=== PATIENT | male | born 1995 | race Caucasian/White ===

== ENCOUNTER → 2017-01-22 | Outpatient (REF) | payer BC ==
[2017-01-23 11:31] LABS: MEAN CORPUSCULAR HEMOGLOBIN 31.4 pg (27.0-33.0); MEAN CORPUSCULAR VOLUME 89.7 fl (80.0-96.0); RED CELL DISTRIBUTION WIDTH 12.3 % (11.5-14.5); WHITE BLOOD COUNT 8.9 K/mm3 (4.0-10.0)
== END ==
LOC: M SFHCCLAY 16:23
PROVIDERS: ATTEND Family Medicine
DX: F41.9 Anxiety disorder, unspecified (principal)

== ENCOUNTER → 2017-01-27 | Outpatient (REF) | payer BC ==
[2017-01-27 11:54] LABS: MEAN CORPUSCULAR HEMOGLOBIN 30.4 pg (27.0-33.0); MEAN CORPUSCULAR HGB CONC 34.4 g/dl (32.0-36.5); MEAN CORPUSCULAR VOLUME 88.4 fl (80.0-96.0); RED CELL DISTRIBUTION WIDTH 12.5 % (11.5-14.5); WHITE BLOOD COUNT 7.5 K/mm3 (4.0-10.0)
[2017-01-27 12:34] LABS: FREE T4 1.11 NG/DL (0.78-1.33)
== END ==
LOC: M SFHCCLAY 08:10
PROVIDERS: ATTEND Family Medicine
DX: F41.9 Anxiety disorder, unspecified (principal)

== ENCOUNTER → 2018-10-13 | Outpatient (CLI) | payer BC ==
--- NOTE | 2018-10-13 14:08 | REP ---
Chest two views HISTORY: Cough Comparison: None The lungs are clear. The heart is normal in size. The pulmonary vasculature is normal in appearance. The bony structure is intact. IMPRESSION: No acute disease. Electronically Signed by Ash Norris MD 10/13/2018 02:00 P
== END ==
LOC: M LRY 13:41
PROVIDERS: ATTEND Physician Assistant
DX: R50.9 Fever, unspecified (principal); R05 Cough

== ENCOUNTER → 2018-10-13 | Outpatient (REF) | payer BC | LOC: M SFHCLERA 13:26 | PROVIDERS: ATTEND Physician Assistant | DX: J02.9 Acute pharyngitis, unspecified (principal) ==

== ENCOUNTER → 2020-01-02 | Outpatient (CLI) | payer BC ==
--- NOTE | 2020-01-02 14:37 | REP ---
Right tib-fib series: Four views. History: Pain and swelling and bruising. Injury 9 days ago. Findings: There is persistent pretibial soft tissue swelling visible on the lateral film. No fracture or subluxation is seen. Bones joints and soft tissues are otherwise unremarkable. Impression: No fracture seen. Pretibial soft tissue swelling. Otherwise negative right tib-fib series. Electronically Signed by Kam Dawson MD 01/02/2020 02:28 P
== END ==
LOC: M LRY 13:58
PROVIDERS: ATTEND Physician Assistant
DX: S89.91XA Unspecified injury of right lower leg, initial encounter (principal); M79.89 Other specified soft tissue disorders; X58.XXXA Exposure to other specified factors, initial encounter; Y92.9 Unspecified place or not applicable

== ENCOUNTER → 2025-06-19 | Outpatient (REF) | payer BC ==
[2025-06-19 18:13] LABS: BASO # 0.1 10^3/uL (0.0-0.2); BASO % 0.7 % (0.0-1.0); EOS # 0.1 10^3/uL (0.0-0.5); EOS % 1.0 % (0.0-3.0); LYMPH # 2.0 10^3/uL (1.5-5.0); LYMPH % 25.8 % (24.0-44.0); MONO # 0.7 10^3/uL (0.0-0.8); MONO % 9.0 % (2.0-8.0); NEUTROPHILS # 4.8 10^3/uL (1.5-8.5); NEUTROPHILS % 63.2 % (36.0-66.0); PLATELET COUNT, AUTOMATED 397 10^3/uL (150-450)
[2025-06-19 18:36] LABS: ESTIMATED AVERAGE GLUCOSE 100.0 MG/DL (60-110)
[2025-06-19 18:46] LABS: TOTAL 25(OH) VITAMIN D 23.5 NG/ML (20.0-100.0)
[2025-06-19 18:47] LABS: TESTOSTERONE 166 NG/DL (241-827)
[2025-06-19 18:48] LABS: ALT/SGPT 135 U/L (7.0-40); AST/SGOT 70 U/L (<34); CALCIUM LEVEL 9.5 MG/DL (8.5-10.1); CARBON DIOXIDE LEVEL 23 MMOL/L (20-31); CHLORIDE LEVEL 105 MMOL/L (98-107); CHOLESTEROL LEVEL 225 MG/DL (<200); CHOLESTEROL RISK RATIO 5.10 (<5); CREATININE FOR GFR 0.73 MG/DL (0.70-1.30); FREE T4 1.24 NG/DL (0.89-1.76); GLOMERULAR FILTRATION RATE > 90.0 (>60); LDL CHOLESTEROL 140.5 MG/DL (<100); MAGNESIUM LEVEL 1.9 MG/DL (1.8-2.4); NON-HDL-C 180.9 MG/DL; POTASSIUM SERUM 5.0 MMOL/L (3.5-5.1); SODIUM LEVEL 140 MMOL/L (136-145); TRIGLYCERIDES LEVEL 202 MG/DL (<150); VITAMIN B12 LEVEL 503 PG/ML (211-911)
== END ==
LOC: M SFHCCAPE 08:30
PROVIDERS: ATTEND Physician Assistant Medical
DX: R25.2 Cramp and spasm (principal); E66.01 Morbid (severe) obesity due to excess calories; Z13.220 Encounter for screening for lipoid disorders; R68.82 Decreased libido